=== PATIENT | female | born 2000 | race Caucasian/White ===

== ENCOUNTER 2021-02-27 23:07 | Emergency (ER) | payer BC ==
[2021-02-28] MEDS ORDERED: hydrOXYzine 25 MG TAB ONE ×2 (01:49→01:54)
== END 2021-02-28 02:14 | disposition home or self-care (01) ==
LOC: ERS 23:07
DX: F33.9 Major depressive disorder, recurrent, unspecified (principal); F41.9 Anxiety disorder, unspecified; F17.290 Nicotine dependence, other tobacco product, uncomplicated; Z79.899 Other long term (current) drug therapy
CPT/HCPCS: 99284

== ENCOUNTER 2021-10-01 01:21 | Emergency (ER) | payer BC | END 2021-10-01 02:46 | disposition left against medical advice (07) | LOC: ERS 01:21 | DX: Z53.21 Procedure and treatment not carried out due to patient leaving prior to being seen by health care provider (principal) ==